=== PATIENT | female | born 1960 ===

== ENCOUNTER 2024-03-31 08:00 | Outpatient (CLI) | payer OTHER ==
[2024-03-31] MEDS ORDERED: GLIPIZIDE XL2.5 MG PO (12:20)
[2024-03-31] MEDS ORDERED: COZAAR100 MG PO (12:20)
[2024-03-31] MEDS ORDERED: METFORMIN HCL1000 M2 PO (12:20)
[2024-03-31] MEDS ORDERED: HORIZANT300 MG PO (12:21)
[2024-03-31 16:40] LABS: INR 1.06; PARTIAL THROMBOPLASTIN TIME 37.1 SECONDS (22.0-34.0); PROTHROMBIN TIME 11.5 SECONDS (9.0-11.5)
[2024-03-31 16:53] LABS: COL EPI 100 SECONDS (82-175)
== END 2024-03-31 08:01 | disposition home or self-care (01) ==
LOC: LAB 08:00 → ADM 12:00 → CIR.AMB 04-08 12:00 → EDSTATUS 04-08 12:00 → CIR.AMB 04-08 14:30
PROVIDERS: ATTEND Colon & Rectal Surgery
DX: D12.8 Benign neoplasm of rectum (principal); C20 Malignant neoplasm of rectum; Z86.0100 Personal history of colon polyps, unspecified

== ENCOUNTER → 2024-04-07 09:14 | Outpatient (CLI) | payer OTHER ==
[~2024-04-07 09:14] MED LIST: COZAAR100 MG PO; GLIPIZIDE XL2.5 MG PO; HORIZANT300 MG PO; METFORMIN HCL1000 M2 PO
[2024-04-07 10:36] LABS: INR 1.06; PARTIAL THROMBOPLASTIN TIME 37.8 SECONDS (22.0-34.0); PROTHROMBIN TIME 11.5 SECONDS (9.0-11.5)
== END | disposition home or self-care (01) ==
LOC: LAB 09:14
PROVIDERS: ATTEND Internal Medicine Geriatric Medicine
DX: D68.9 Coagulation defect, unspecified (principal)

== ENCOUNTER 2024-06-24 09:14 | Day surgery (SDC) | payer OTHER ==
[2024-06-17 13:03] VITALS: BP 156/78
[~2024-06-24] VITALS: Ht 152.4 cm; Wt 87.1 kg
[2024-06-24] MEDS ORDERED: DIBUCAINE 30 GM TUBE ONE (14:26)
[2024-06-24] MEDS ORDERED: BUPIVACAINE HCL/Mpf 0.5% 10ML VIAL ONE (14:26)
[2024-06-24] MEDS ORDERED: LIDOCAINE HCL 1%/EPINEPHRINE 20ML VIAL IJ ONE (14:26)
[2024-06-24] MEDS ORDERED: CEFTRIAXONE SODIUM 2,000 MG VIAL ONE (14:27)
[2024-06-24] MEDS ORDERED: POVIDONE-IODINE 118 ML BOTT TOP ONE (14:28)
[2024-06-24] MEDS ORDERED: METRONIDAZOLE/SODIUM CHLORIDE 500 MG/100 ML PIGGYBACK IV ONE (14:29)
[2024-06-24] MEDS ORDERED: HEMOSTATIC MATRIX 1 KIT KIT TOP ONE (14:29)
== END 2024-06-24 19:50 | disposition home or self-care (01) ==
LOC: CIR.AMB 09:14
PROVIDERS: ATTEND Colon & Rectal Surgery
DX: D12.8 Benign neoplasm of rectum (principal); C20 Malignant neoplasm of rectum; I10 Essential (primary) hypertension; Z88.1 Allergy status to other antibiotic agents; Z88.2 Allergy status to sulfonamides